=== PATIENT | male | born 1940 | race Caucasian/White ===

== ENCOUNTER → 2017-08-17 | Outpatient (CLI) | payer MEDICARE, OTHER ==
[~2017-08-17] MED LIST: ALBU17I INH; ALBU8I INH; ASPI81TA82 PO; FISH100020 OR; LISI-363 PO; MULT-65 PO; PRED20 PO; PROM6.257 PO; SPIRCAP INH; ZITH250T PO
[2017-08-17 13:09] LABS: BICARBONATE 28.2 MEQ/L (21.0-32.0); CREATININE 1.15 MG/DL (0.60-1.30)
== END ==
LOC: CLAB 12:20
DX: I10 Essential (primary) hypertension (principal)
CPT/HCPCS: 36415; 80048